=== PATIENT | male | born 1945 | race Caucasian/White ===

== ENCOUNTER 2017-01-15 10:04 | Emergency (ER) | payer MEDICARE, SELFPAY ==
--- NOTE | 2017-01-15 12:11 | EDM.PDOC ---
ED HPI GENERAL MEDICAL PROBLEM - General Chief Complaint: General Stated Complaint: ELEVATED BP, HEADACHE Time Seen by Provider: 01/15/17 10:25 Source of Information: Reports: Patient History Limitations: Reports: No Limitations - History of Present Illness INITIAL COMMENTS - FREE TEXT/NARRATIVE: 71-year-old male with chronic kidney disease, hypertension who saw his whiskey regauger last week and had his metoprolol increased. Labs were done, and he was supposed to get repeat labs today or tomorrow which is whiskey regauger was going to review. He checked his blood pressure this morning however and it was higher than usual, at 180/100 and he was having some left arm tingling. This is not a new symptom, it waxes and wanes for the past year. He called the clinic however and they sent him in to the emergency room. His blood pressure was still elevated on arrival at 174/97. This did not seem significant as it was otherwise asymptomatic, but in reviewing his clinic records his blood pressure is usually lower than this. He denies taking any increased salt. Onset: Unknown/Unsure Severity: Mild Associated Symptoms: Reports: Other (Intermittent paresthesias of the left arm) . Denies: Shortness of Breath Left Arm Pain Score (Numeric/FACES): 0 - Related Data Allergies Allergy/AdvReac Type Severity Reaction Status Date / Time No Known Allergies Allergy Verified 12/24/16 10:20 Home Meds: Home Meds Calcium Citrate/Vitamin D3 [Calcium Citrate + Caplet] 500 mg PO DAILY 10/18/14 [ History] Cholecalciferol (Vitamin D3) [Vitamin D3] 2,000 units PO DAILY 10/18/14 [History ] Furosemide [Furosemide] 40 mg PO DAILY 10/18/14 [History] Gabapentin [Gabapentin] 600 mg PO TID 10/18/14 [History] Losartan [Cozaar] 50 mg PO BID 10/18/14 [History] Metoprolol Succinate [Toprol XL 50mg] 50 mg PO BID 10/18/14 [History] Multivitamin [Multi-Vitamin Daily] 500 mg PO DAILY 10/18/14 [History] Potassium Chloride 20 meq PO DAILY 10/18/14 [History] Ranitidine HCl [Ranitidine] 150 mg PO BID 10/18/14 [History] Vitamin B Complex [Vitamin B-100 Complex] 1 tab PO DAILY 10/18/14 [History] atorvaSTATin [Lipitor] 20 mg PO DAILY 10/18/14 [History] traMADol HCl [Ultram] 50 mg PO Q6HR PRN 10/18/14 [History] Liraglutide [Victoza] 0.6 mg SUBCUT DAILY 03/22/15 [History] amLODIPine [Norvasc] 10 mg PO DAILY 03/12/16 [History] Past Medical History Cardiovascular History: Reports: Hypertension Endocrine/Metabolic History: Reports: Diabetes, Type II - Past Surgical History Male Surgical History: Reports: Prostatectomy Social & Family History - Tobacco Use Smoking Status *Q: Never Smoker Second Hand Smoke Exposure: No - Recreational Drug Use Recreational Drug Use: No ED ROS GENERAL - Review of Systems Review Of Systems: See Below Constitutional: Denies: Fever, Chills HEENT: Reports: No Symptoms Respiratory: Denies: Shortness of Breath GI/Abdominal: Denies: Abdominal Pain, Nausea, Vomiting Neurological: Reports: Headache (Intermittent mild headaches, none at this time) , Paresthesia Psychiatric: Reports: No Symptoms ED EXAM, GENERAL - Physical Exam Exam: See Below Exam Limited By: No Limitations General Appearance: Alert, No Apparent Distress Eye Exam: Bilateral Eye: EOMI, PERRL Respiratory/Chest: No Respiratory Distress, Lungs Clear Cardiovascular: Regular Rate, Rhythm GI/Abdominal: Soft, Non-Tender Extremities: Normal Inspection, Other (Normal strength, no asymmetry of the arms ) Neurological: Alert, Oriented, No Motor/Sensory Deficits Psychiatric: Normal Affect, Normal Mood Skin Exam: Warm, Dry Course - Vital Signs Last Recorded V/S: Last Vital Signs Temp 96.3 F 01/15/17 11:01 Pulse 67 01/15/17 12:52 Resp 18 01/15/17 12:52 BP 168/90 H 01/15/17 12:52 Pulse Ox 96 01/15/17 12:52 - Orders/Labs/Meds Labs: Laboratory Tests 01/15/17 01/15/17 Range/Units 11:45 11:45 WBC 5.5 (4.5-11.0) K/uL RBC 4.58 (4.30-5.90) M/uL Hgb 13.6 (12.0-15.0) g/dL Hct 38.5 L (40.0-54.0) % MCV 84 (80-98) fL MCH 30 (27-31) pg MCHC 35 (32-36) % Plt Count 184 (150-400) K/uL Neut % (Auto) 56 (36-66) % Lymph % (Auto) 28 (24-44) % Bollinger % (Auto) 11 H (2-6) % Eos % (Auto) 6 H (2-4) % Baso % (Auto) 1 (0-1) % Sodium 142 (140-148) mmol/L Potassium 3.6 (3.6-5.2) mmol/L Chloride 105 (100-108) mmol/L Carbon Dioxide 29 (21-32) mmol/L Anion Gap 8.3 (5.0-14.0) mmol/L BUN 18 (7-18) mg/dL Creatinine 1.0 (0.8-1.3) mg/dL Est Cr Clr Drug Dosing 70.97 mL/min Estimated GFR (MDRD) > 60 (>60) Glucose 160 H (74-106) mg/dL Calcium 9.8 (8.5-10.1) mg/dL - Re-Assessments/Exams Free Text/Narrative Re-Assessment/Exam: 01/15/17 12:10 Patient was monitored for the next hour and a half, CBC and BMP were obtained. Levels were compared to clinic lab values and they're actually improved. His GFR is over 60 and creatinine is 1.0. His blood pressure continued to be elevated however so I put a call into his whiskey regauger Dr. Lilly. 01/15/17 13:22 Mode waiting for the labs, and waiting for the call back from his whiskey regauger his blood pressure did normalize and his systolic is 168 over diastolic of 87. I discussed this with Dr. Lilly and he wanted him to continue monitoring his blood pressure and call him next week. Departure - Departure Time of Disposition: 13:51 Disposition: Home, Self-Care 01 Condition: Good Clinical Impression: Paresthesia of left arm Hypertension Qualifiers: Hypertension type: renovascular hypertension Qualified Code(s): I15.0 - Renovascular hypertension - Discharge Information Instructions: Paresthesia, Hypertension Referrals: PCP,None [Primary Care Provider] - Forms: ED Department Discharge Care Plan Goals: Continue your current medications and monitor blood pressure through the weekend. Call Dr. Lilly next week with your blood pressure results. He can always return sooner if worsening or concerns.
[2017-01-15 12:52] VITALS: BP 168/90
== END 2017-01-15 13:53 | disposition home or self-care (01) ==
LOC: JP.ED 10:04
DX: I15.0 Renovascular hypertension (principal); R20.2 Paresthesia of skin; N18.9 Chronic kidney disease, unspecified; E11.9 Type 2 diabetes mellitus without complications; Z79.899 Other long term (current) drug therapy
CPT/HCPCS: 36415; 80048; 85025; 99283; 99284

== ENCOUNTER 2019-10-21 06:25 | Day surgery (SDC) | payer MEDICARE ==
[~2019-10-21 06:25] MED LIST: Sodium Chloride 0.9% 1,000 ML IV SCH
[2019-10-21] MEDS ORDERED: Sodium Chloride 0.9% 1,000 ML IV SCH (07:15)
[2019-10-21] MEDS ORDERED: Midazolam 1 MG/ML 2 ML SDV ONE (07:39)
[2019-10-21] MEDS ORDERED: fentaNYL 100 MCG/2 ML SDV ONE (07:39)
[2019-10-21] MEDS ORDERED: Propofol 200 MG/20 ML SDV ONE ×2 (07:39→08:12)
--- NOTE | 2019-10-21 09:18 | OR ---
DATE OF PROCEDURE: 10/21/2019 SURGEON: Mark Henry MD PROCEDURE: Colonoscopy. FINDINGS: 1. Diverticulosis, very mild. 2. No other gross abnormalities. COMPLICATIONS: None. TRIAGE NURSE: None. ANESTHESIA: MAC. PREOPERATIVE DIAGNOSIS: Screening colonoscopy/history of colon polyps. POSTOPERATIVE DIAGNOSIS: Screening colonoscopy/history of colon polyps. RISKS: Risks, benefits, alternatives, limitations including, but not limited to infection, bleeding, and perforation were explained to the patient, who wished to proceed. PROCEDURE IN DETAIL: The patient was placed in left lateral decubitus position. Digital rectal exam was performed without abnormality. The scope was introduced and advanced atraumatically to the ileocecal valve. Scope was brought back through the ascending, transverse, descending colon, and retroflexed. No polyps. No masses. No old or new blood. Diverticulosis was described as mild, limited to sigmoid colon without diverticulitis or bleeding. No abnormalities on retroflexion. The patient tolerated the procedure well. Mark Henyr MD /[id number]
[2019-10-21 09:38] VITALS: BP 153/85
[2019-10-21 10:15] VITALS: PULSE 57
== END 2019-10-21 10:20 | disposition home or self-care (01) ==
LOC: JP.SDS 06:25
PROVIDERS: ATTEND Surgery
DX: Z12.11 Encounter for screening for malignant neoplasm of colon (principal); K57.30 Diverticulosis of large intestine without perforation or abscess without bleeding; K21.9 Gastro-esophageal reflux disease without esophagitis; E11.22 Type 2 diabetes mellitus with diabetic chronic kidney disease; I12.9 Hypertensive chronic kidney disease with stage 1 through stage 4 chronic kidney disease, or unspecified chronic kidney disease; D63.1 Anemia in chronic kidney disease; N18.9 Chronic kidney disease, unspecified; G47.33 Obstructive sleep apnea (adult) (pediatric); Z86.010 Personal history of colon polyps; Z98.890 Other specified postprocedural states
CPT/HCPCS: G0105; J2250; J2704; J3010; J7030

== ENCOUNTER 2021-06-13 06:28 | Day surgery (SDC) | payer MEDICARE ==
[2021-06-13] MEDS ORDERED: Sodium Chloride 0.9% 10 ML Syringe FLUSH PRN (07:30)
[2021-06-13] MEDS ORDERED: Labetalol 20 MG/4 ML Syringe ONE (07:55)
[2021-06-13 08:12] VITALS: BP 162/72; PULSE 71
== END 2021-06-13 08:27 | disposition home or self-care (01) ==
LOC: JP.SDS 06:28
PROVIDERS: ATTEND Ophthalmology
DX: E11.36 Type 2 diabetes mellitus with diabetic cataract (principal); H25.12 Age-related nuclear cataract, left eye; E11.22 Type 2 diabetes mellitus with diabetic chronic kidney disease; I12.9 Hypertensive chronic kidney disease with stage 1 through stage 4 chronic kidney disease, or unspecified chronic kidney disease; N18.9 Chronic kidney disease, unspecified
CPT/HCPCS: J3490; V2632

== ENCOUNTER 2021-06-27 07:54 | Day surgery (SDC) | payer MEDICARE ==
[2021-06-27] MEDS: Sodium Chloride 0.9% 10 ML Syringe FLUSH PRN (08:32)
[2021-06-27 09:11] VITALS: BP 153/76; PULSE 59
== END 2021-06-27 09:30 | disposition home or self-care (01) ==
LOC: JP.SDS 07:54
PROVIDERS: ATTEND Ophthalmology
DX: H25.11 Age-related nuclear cataract, right eye (principal)

== ENCOUNTER 2022-10-05 10:19 | Emergency (ER) | payer MEDICARE ==
[2022-10-05 10:29] VITALS: BP 176/62
[2022-10-05 10:56] VITALS: PULSE 56
== END 2022-10-05 11:41 | disposition home or self-care (01) ==
LOC: JP.ED 10:19
DX: L03.115 Cellulitis of right lower limb (principal); E78.00 Pure hypercholesterolemia, unspecified; I10 Essential (primary) hypertension; K21.9 Gastro-esophageal reflux disease without esophagitis; E11.9 Type 2 diabetes mellitus without complications; Z79.4 Long term (current) use of insulin; Z79.82 Long term (current) use of aspirin; Z79.899 Other long term (current) drug therapy
CPT/HCPCS: 87070; 87077; 87186; 87205; 99283